=== PATIENT | female | born 1960 | race Caucasian/White ===

== ENCOUNTER → 2020-08-13 10:53 | Outpatient (CLI) | payer OTHER, SELFPAY ==
--- NOTE | ~2020-08-13 | CT_ITS ---
EXAMINATION: CT soft tissue neck chest w DATE: 08/13/2020 12:06 INDICATION: Stenosis of larynx, Dyspnea TECHNIQUE: Computed tomography (CT) of the neck and chest was performed . with 100 mL Omnipaque-350 i ntravenous contrast. Additional 3D reconstructions utilizing coronal maximum intensity projection (AL P) were performed. Automated exposure control and iterative reconstruction technique were employed. T he dose-length product was 895.09 mGy-cm. COMPARISON: None FINDINGS: NECK: Thyroid gland is unremarkable. Submandibular and parotid glands are symmetric. There are scattered normal-sized lymph nodes in the neck, no lymphadenopathy. Epiglottis is normal. There is some asymmet ry to the larynx with thickening of the right vocal cord which remains extended to near the midline. The airway is otherwise unremarkable. The vasculature is patent and normal in caliber. Orbits are unr emarkable. Mild mucosal thickening the right ethmoid sinus. The middle ear cavities and mastoid air c ells are clear. Moderate cervical spondylosis. CHEST: There are few scattered tiny calcified pulmonary nodules consistent with old granulomatous disease. M ild atelectasis/scarring at the lingula and left lower lobe along the caudal aspect of the major fiss ure. No suspicious pulmonary nodules, pneumonia, pulmonary edema or pleural effusion. The trachea and bronchi appear normal. Heart size is normal. No pericardial effusion. Thoracic aorta is normal in ca liber with no dissection. No pathologically enlarged thoracic lymphadenopathy. Moderate thoracic spon dylosis. IMPRESSION: 1. Asymmetric thickening of the right vocal cord raising concern for malignancy. Recommend ENT with l aryngoscopy for direct visualization. Reviewed, dictated and finalized at location B. [employer] IMPRESSION: 1. Asymmetric thickening of the right vocal cord raising concern for malignancy . Recommend ENT with laryngoscopy for direct visualization.
[2020-08-13 11:24] LABS: Estimated Glomerular Filt Rate > 60
== END ==
PROVIDERS: Visit Provider Otolaryngology
DX: J38.6 Stenosis of larynx (principal); R06.00 Dyspnea, unspecified
CPT/HCPCS: 70491; 71260; Q9967